=== PATIENT | female | born 1985 | race Caucasian/White ===

== ENCOUNTER → 2018-07-02 | Outpatient (CLI) | payer OTHER | LOC: COL.RAD 06-30 09:00 | DX: R10.11 Right upper quadrant pain (principal) ==

== ENCOUNTER 2018-08-12 08:50 | Day surgery (SDC) | payer OTHER ==
[~2018-08-12] VITALS: Ht 175.3 cm; Wt 65.0 kg
[2018-08-12] MEDS ORDERED: TRINESSA LO TA1 EACH PO (09:08)
[2018-08-12] MEDS ORDERED: PROBIOTIC ACID1 EAC3 PO (09:09)
[2018-08-12] MEDS ORDERED: PRILOTC PO (09:09)
[2018-08-12] MEDS ORDERED: VITAMIN D 1001000 IU PO (09:10)
[2018-08-12] MEDS ORDERED: B-12 500 MCG PO (09:10)
[2018-08-12] MEDS ORDERED: HARD NAILS 2.51 CAP PO (09:11)
[2018-08-12] MEDS ORDERED: FOLIC ACID 11 MG/TA1 PO (09:11)
[2018-08-12 09:58] VITALS: BP 128/80; PULSE 86; TEMP 98.4
[2018-08-12] MEDS ORDERED: PROTONIX 40MG T40 MG PO (10:38)
[2018-08-12 10:55] VITALS: BP 116/61; PULSE 71; TEMP 99.2
[2018-08-12 11:10] VITALS: BP 97/60; PULSE 66
[2018-08-12 11:25] VITALS: BP 111/68; PULSE 67
[2018-08-12 11:40] VITALS: BP 108/68; PULSE 69
== END 2018-08-12 11:55 | disposition home or self-care (01) ==
LOC: SDCO 08:50
DX: K29.30 Chronic superficial gastritis without bleeding (principal); Z91.018 Allergy to other foods
CPT/HCPCS: J2250; J2405; J3010; J7030